=== PATIENT | male | born 1965 | race Caucasian/White ===

== ENCOUNTER 2016-04-17 00:14 | Emergency (ER) | payer MEDICARE ==
[2016-04-17 00:35] VITALS: TEMP 97.7; BMI 25.7
[2016-04-17] MEDS ORDERED: LORAZEPAM 2 MG/ML VIAL IV ONE ×2 (00:38→04:35)
--- NOTE | 2016-04-17 00:43 | EDPRACDOC ---
- General Information Mode of Arrival: Car - History of Present Illness Onset: TODAY HPI: PT PRESENTS WITH REPORT OF URINATING AND COUGHING UP BLOOD WELL MELENA. HE TOOK COCAINE AND POSSIBLY OTHER ILLICIT DRUGS EARLIER TODAY. HE IS AN IVDA. <Percy Rojas - Last Filed: 04/17/16 04:09> <Marcos Mccall - Last Filed: 04/17/16 13:09> - General Information Chief Complaint: HEMOPTYSIS Stated Complaint: EXCRETING BLOOD Time Seen by Provider: 04/17/16 00:35 Home Medications: Home Medications Dicyclomine HCl [Bentyl] 20 mg PO Q6H PRN #20 tab 04/17/16 Allergies/Adverse Reactions: Allergies Allergy/AdvReac Type Severity Reaction Status Date / Time sulfamethoxazole Allergy Unknown Unknown Verified 04/17/16 00:35 [From ] trimethoprim [From ] Allergy Unknown Unknown Verified 04/17/16 00:35 ED Past Medical History - History Reviewed Yes Nurses notes reviewed and agree except as marked - Patient Medical History Cardiac History: Reports: Hypertension Psychological History: Reports: Depression, Anxiety Additional Past Medical History: TRAUMATIC BRAIN INJURY Surgical History: Reports: Tonsillectomy/Adnoidectomy - Social Medical History Smoking Status: Heavy tobacco smoker (5 or more cigarettes/day or daily pipe/ cigar) Social History: Reports: Cocaine Use, Heroin Use Substance Abuse: Illicit Drugs Lives In: Home <Percy Rojas - Last Filed: 04/17/16 04:09> EDM Review of Systems - Review of Systems ROS Negative Except as Marked: Yes All systems reviewed and were negative except as marked Constitutional: Fatigue. negative: Fever Respiratory: Cough, Hemoptysis, Shortness of Breath Cardiovascular: Chest Pain Gastrointestinal: Melena, Pain Genitourinary: Hematuria <Percy Rojas - Last Filed: 04/17/16 04:09> - Physical Exam Constitutional: Alert Oriented to: Time, Person, Place Last recorded Vital Signs: Last Vital Signs Temp 97.7 F 04/17/16 00:27 Pulse 97 04/17/16 00:27 Resp 30 H 04/17/16 00:27 BP 120/59 L 04/17/16 00:27 Pulse Ox 98 04/17/16 00:27 Oxygen Pulse Oxygen Saturation 98 O2 Device Room Air Oxygen Flow Rate Fraction of Inspired Oxygen ( FIO2) - HEENT Head: negative: Deformity, Laceration Eye Exam: negative: Conjunctival Injection, Pale Conjunctiva Oropharynx: negative: Membranes Dry Nose: negative: Congestion, Discharge - Respiratory/Cardiovascular Respiratory: Tachypnea Cardiovascular: negative: Bradycardia - GI Auscultation: Normal Palpation: Normal Tenderness: Diffuse, Mild Rectal Exam: Heme negative stool - Musculoskeletal Extremities: Radial Pulse (PALPABLE) - Integumentary Skin: Warm, Dry, Other (MULTIPLE TRACK NICHOLAS) - Neurologic Memory Impaired: negative: Short-term Motor Function: Normal Mood Description: Anxious Thought: Coherent <Percy Rojas - Last Filed: 04/17/16 04:09> - Physical Exam Last recorded Vital Signs: Last Vital Signs Temp 97.7 F 04/17/16 00:27 Pulse 89 04/17/16 09:00 Resp 16 04/17/16 09:00 BP 121/71 04/17/16 09:00 Pulse Ox 96 04/17/16 09:00 Oxygen Pulse Oxygen Saturation 96 O2 Device Room Air Oxygen Flow Rate Fraction of Inspired Oxygen ( FIO2) <Marcos Mccall - Last Filed: 04/17/16 13:09> - Re-evaluation Re-evaluation 1 Re-evaluation Time: 03:04 PT NOW CALMER. HE HAS BEEN VOMITING FOR MANY DAYS NOW. SUSPECT DEHYDRATION CAUSE OF RENAL FAILURE. Re-evaluation 2 Re-evaluation Time: 03:25 CURRENTLY THERE IS NO GI COVERAGE. HOSPITALIST DECLINES ADMISSION PATIENT REPORTS GI BLEED FROM BOTH UPPER AND LOWER. PATIENT WAS RECENTLY TREATED AT [facility] FOR STAPH INFECTION TO HIS KNEE. AGREEABLE TO ATTEMPTED TRANSFER BACK TO [facility]. Re-evaluation 3 Re-evaluation Time: 04:09 PT ACCEPTED FOR TRANSFER TO [facility] BY DR. BRAR. - Results 04/17/16 00:43 04/17/16 00:43 - EKG EKG #1 EKG Time: 00:46 -: Yes EKG interpreted by me Rate: bpm: 95 Rhythm: NSR ST: Nonsp <Percy Rojas - Last Filed: 04/17/16 04:09> - Re-evaluation Re-evaluation 4 Re-evaluation Time: 13:08 NO DISTRESS. ABD SOFT. NONTENDER. DISCHARGING HOME. No changes in clinical status or new information from previous documentation. Vital Signs: Temp:97.7 F HR: 90 BP: 123/77 RR: 16 Pox: 96%. Continue with current plan. - Results 04/17/16 11:49 04/17/16 11:49 WBC 14.0 xk/uL (3.8-10.8) H 04/17/16 11:49 RBC 4.16 xM/uL (4.70-6.10) L 04/17/16 11:49 Hgb 11.8 g/dL (14.0-18.0) L 04/17/16 11:49 Hct 35.6 % (42-52) L 04/17/16 11:49 MCV 86 fL (80-94) 04/17/16 11:49 MCH 28.4 pg (27-32) 04/17/16 11:49 MCHC 33.2 g/dl (33-36) 04/17/16 11:49 RDW 13.8 % (11.5-14.5) 04/17/16 11:49 Plt Count 260 xk/uL (130-400) 04/17/16 11:49 MPV 7.2 fL (7.4-10.4) L 04/17/16 11:49 Neut % (Auto) 86.9 % (45-76) H 04/17/16 00:43 Lymph % (Auto) 6.2 % (17-44) L 04/17/16 00:43 [place] % (Auto) 6.3 % (3-10) 04/17/16 00:43 Eos % (Auto) 0.0 % (0-5) 04/17/16 00:43 Baso % (Auto) 0.6 % (0-2) 04/17/16 00:43 Absolute Neuts (auto) 18.06 xk/uL (1.7-8.2) H 04/17/16 00:43 Absolute Lymphs (auto) 1.26 xk/uL (0.65-4.75) 04/17/16 00:43 PT 11.3 SEC (9.2-11.2) H 04/17/16 00:43 INR 1.1 04/17/16 00:43 APTT 25.1 SEC (22-35) 04/17/16 00:43 Sodium 139 mEq/L (137-146) 04/17/16 11:49 Potassium 3.6 mEq/L (3.5-5.1) 04/17/16 11:49 Chloride 110 mEq/L (98-107) H 04/17/16 11:49 Carbon Dioxide 17 mMOL/L (22-33) L 04/17/16 11:49 Anion Gap 16 mEq/L (8-16) 04/17/16 11:49 BUN 28 MG/DL (9-20) H 04/17/16 11:49 Creatinine 1.40 MG/DL (0.66-1.25) H D 04/17/16 11:49 Estimated GFR (MDRD) 54 mL/min (>=60) L 04/17/16 11:49 Glucose 83 MG/DL (70-99) 04/17/16 11:49 Calculated Osmolality 273 MOs/Kg (270-290) 04/17/16 11:49 Lactic Acid 1.3 mEq/L (0.7-2.1) 04/17/16 02:45 Calcium 8.1 MG/DL (8.4-10.2) L 04/17/16 11:49 Total Bilirubin 0.8 MG/DL (0.2-1.3) 04/17/16 00:43 AST 48 IU/L (17-59) 04/17/16 00:43 ALT 34 IU/L (21-72) 04/17/16 00:43 Alkaline Phosphatase 144 IU/L (38-126) H 04/17/16 00:43 Creatine Kinase 655 IU/L (55-170) H 04/17/16 03:36 CK-MB (CK-2) 8.6 ng/mL (0-4.5) H 04/17/16 03:36 CK-MB (CK-2) Rel Index 1.3 (0.0-2.2) 04/17/16 03:36 Troponin I < 0.01 ng/mL (<.04) 04/17/16 06:05 Total Protein 9.1 G/DL (6.3-8.2) H 04/17/16 00:43 Albumin 4.7 G/DL (3.5-5.0) 04/17/16 00:43 Urine Color Yellow 04/17/16 01:53 Urine Clarity Cldy 04/17/16 01:53 Urine pH 5.0 (5.0-8.0) 04/17/16 01:53 Ur Specific Inez 1.035 (1.003-1.035) 04/17/16 01:53 Urine Protein Trace (NEG/TRACE) 04/17/16 01:53 Urine Glucose (UA) Neg (NEGATIVE) 04/17/16 01:53 Urine Ketones Neg (NEGATIVE) 04/17/16 01:53 Urine Occult Blood Neg (NEG/TRACE) 04/17/16 01:53 Urine Nitrite Neg (NEGATIVE) 04/17/16 01:53 Urine Bilirubin Neg (NEGATIVE) 04/17/16 01:53 Urine Urobilinogen 0.2 MG/DL (0-1) 04/17/16 01:53 Ur Leukocyte Esterase Trace (NEGATIVE) 04/17/16 01:53 Urine RBC 2-5 (0-2) H 04/17/16 01:53 Urine WBC 5-10 (0-2) H 04/17/16 01:53 Ur Epithelial Cells Occ 04/17/16 01:53 Urine Bacteria Few (NEG/FEW) 04/17/16 01:53 Hyaline Casts 10-20 (0-2) H 04/17/16 01:53 Urine Mucus Occ (NEG/OCC) 04/17/16 01:53 Urine Opiates Screen Neg (NEGATIVE) 04/17/16 01:53 Ur Oxycodone Screen *positive* (NEGATIVE) H 04/17/16 01:53 Urine Methadone Screen Neg (NEGATIVE) 04/17/16 01:53 Ur Barbiturates Screen Neg (NEGATIVE) 04/17/16 01:53 Ur Tricyclics Screen Neg (NEGATIVE) 04/17/16 01:53 Ur Phencyclidine Scrn Neg (NEGATIVE) 04/17/16 01:53 Ur Amphetamines Screen Neg (NEGATIVE) 04/17/16 01:53 U Methamphetamines Scrn Neg (NEGATIVE) 04/17/16 01:53 Urine MDMA Screen Neg (NEGATIVE) 04/17/16 01:53 U Benzodiazepines Scrn *positive* (NEGATIVE) H 04/17/16 01:53 Urine Cocaine Screen *positive* (NEGATIVE) H 04/17/16 01:53 Ur THC Screen Neg (NEGATIVE) 04/17/16 01:53 Plasma/Serum Ethyl Alc % (<0.01) 04/17/16 00:43 Lab Results 04/17/16 04/17/16 04/17/16 11:49 11:49 06:05 WBC 14.0 H RBC 4.16 L Hgb 11.8 L Hct 35.6 L MCV 86 MCH 28.4 MCHC 33.2 RDW 13.8 Plt Count 260 MPV 7.2 L Neut % (Auto) Lymph % (Auto) [place] % (Auto) Eos % (Auto) Baso % (Auto) Absolute Neuts (auto) Absolute Lymphs (auto) PT INR APTT Sodium 139 Potassium 3.6 Chloride 110 H Carbon Dioxide 17 L Anion Gap 16 BUN 28 H Creatinine 1.40 H D Estimated GFR (MDRD) 54 L Glucose 83 Calculated Osmolality 273 Lactic Acid Calcium 8.1 L Total Bilirubin AST ALT Alkaline Phosphatase Creatine Kinase CK-MB (CK-2) CK-MB (CK-2) Rel Index Troponin I < 0.01 Total Protein Albumin Urine Color Urine Clarity Urine pH Ur Specific Inez Urine Protein Urine Glucose (UA) Urine Ketones Urine Occult Blood Urine Nitrite Urine Bilirubin Urine Urobilinogen Ur Leukocyte Esterase Urine RBC Urine WBC Ur Epithelial Cells Urine Bacteria Hyaline Casts Urine Mucus Urine Opiates Screen Ur Oxycodone Screen Urine Methadone Screen Ur Barbiturates Screen Ur Tricyclics Screen Ur Phencyclidine Scrn Ur Amphetamines Screen U Methamphetamines Scrn Urine MDMA Screen U Benzodiazepines Scrn Urine Cocaine Screen Ur THC Screen Plasma/Serum Ethyl Alc 04/17/16 04/17/16 04/17/16 03:36 03:36 02:45 WBC RBC Hgb Hct MCV MCH MCHC RDW Plt Count MPV Neut % (Auto) Lymph % (Auto) [place] % (Auto) Eos % (Auto) Baso % (Auto) Absolute Neuts (auto) Absolute Lymphs (auto) PT INR APTT Sodium Potassium Chloride Carbon Dioxide Anion Gap BUN Creatinine Estimated GFR (MDRD) Glucose Calculated Osmolality Lactic Acid 1.3 Calcium Total Bilirubin AST ALT Alkaline Phosphatase Creatine Kinase Cancelled 655 H CK-MB (CK-2) 8.6 H CK-MB (CK-2) Rel Index 1.3 Troponin I < 0.01 Total Protein Albumin Urine Color Urine Clarity Urine pH Ur Specific Inez Urine Protein Urine Glucose (UA) Urine Ketones Urine Occult Blood Urine Nitrite Urine Bilirubin Urine Urobilinogen Ur Leukocyte Esterase Urine RBC Urine WBC Ur Epithelial Cells Urine Bacteria Hyaline Casts Urine Mucus Urine Opiates Screen Ur Oxycodone Screen Urine Methadone Screen Ur Barbiturates Screen Ur Tricyclics Screen Ur Phencyclidine Scrn Ur Amphetamines Screen U Methamphetamines Scrn Urine MDMA Screen U Benzodiazepines Scrn Urine Cocaine Screen Ur THC Screen Plasma/Serum Ethyl Alc 04/17/16 04/17/16 04/17/16 01:53 01:53 00:43 WBC RBC Hgb Hct MCV MCH MCHC RDW Plt Count MPV Neut % (Auto) Lymph % (Auto) [place] % (Auto) Eos % (Auto) Baso % (Auto) Absolute Neuts (auto) Absolute Lymphs (auto) PT INR APTT Sodium Potassium Chloride Carbon Dioxide Anion Gap BUN Creatinine Estimated GFR (MDRD) Glucose Calculated Osmolality Lactic Acid Calcium Total Bilirubin AST ALT Alkaline Phosphatase Creatine Kinase CK-MB (CK-2) CK-MB (CK-2) Rel Index Troponin I Total Protein Albumin Urine Color Yellow Urine Clarity Cldy Urine pH 5.0 Ur Specific Inez 1.035 Urine Protein Trace Urine Glucose (UA) Neg Urine Ketones Neg Urine Occult Blood Neg Urine Nitrite Neg Urine Bilirubin Neg Urine Urobilinogen 0.2 Ur Leukocyte Esterase Trace Urine RBC 2-5 H Urine WBC 5-10 H Ur Epithelial Cells Occ Urine Bacteria Few Hyaline Casts 10-20 H Urine Mucus Occ Urine Opiates Screen Neg Ur Oxycodone Screen *positive* H Urine Methadone Screen Neg Ur Barbiturates Screen Neg Ur Tricyclics Screen Neg Ur Phencyclidine Scrn Neg Ur Amphetamines Screen Neg U Methamphetamines Scrn Neg Urine MDMA Screen Neg U Benzodiazepines Scrn *positive* H Urine Cocaine Screen *positive* H Ur THC Screen Neg Plasma/Serum Ethyl Alc 04/17/16 04/17/16 04/17/16 00:43 00:43 00:43 WBC 21.0 H RBC 4.61 L Hgb 12.9 L Hct 39.0 L MCV 84 MCH 28.1 MCHC 33.2 RDW 13.5 Plt Count 301 MPV 7.9 Neut % (Auto) 86.9 H Lymph % (Auto) 6.2 L [place] % (Auto) 6.3 Eos % (Auto) 0.0 Baso % (Auto) 0.6 Absolute Neuts (auto) 18.06 H Absolute Lymphs (auto) 1.26 PT 11.3 H INR 1.1 APTT 25.1 Sodium 137 Potassium 3.7 Chloride 98 Carbon Dioxide 15 L Anion Gap 28 H BUN 37 H Creatinine 3.10 H Estimated GFR (MDRD) 22 L Glucose 145 H Calculated Osmolality 276 Lactic Acid Calcium 9.8 Total Bilirubin 0.8 AST 48 ALT 34 Alkaline Phosphatase 144 H Creatine Kinase CK-MB (CK-2) CK-MB (CK-2) Rel Index Troponin I < 0.01 Total Protein 9.1 H Albumin 4.7 Urine Color Urine Clarity Urine pH Ur Specific Inez Urine Protein Urine Glucose (UA) Urine Ketones Urine Occult Blood Urine Nitrite Urine Bilirubin Urine Urobilinogen Ur Leukocyte Esterase Urine RBC Urine WBC Ur Epithelial Cells Urine Bacteria Hyaline Casts Urine Mucus Urine Opiates Screen Ur Oxycodone Screen Urine Methadone Screen Ur Barbiturates Screen Ur Tricyclics Screen Ur Phencyclidine Scrn Ur Amphetamines Screen U Methamphetamines Scrn Urine MDMA Screen U Benzodiazepines Scrn Urine Cocaine Screen Ur THC Screen Plasma/Serum Ethyl Alc <Marcos Mccall - Last Filed: 04/17/16 13:09> - Departure Yes I personally saw and evaluated the patient. Disposition: Trans. to Other Hospital <Percy Rojas - Last Filed: 04/17/16 04:09> Decision Time to Discharge: 13:08 - Departure Yes I personally saw and evaluated the patient. Disposition: Home Education/Counseling Given To: Patient Education/Counseling Given Regarding: Diagnosis <Marcos Mccall - Last Filed: 04/17/16 13:09> - Departure Condition: Stable Final Diagnosis: Polysubstance abuse, Enteritis Anemia Qualifiers: Anemia type: unspecified type Qualified Code(s): D64.9 - Anemia, unspecified Acute renal failure Qualifiers: Acute renal failure type: unspecified Qualified Code(s): N17.9 - Acute kidney failure, unspecified GI bleed Qualifiers: GI bleed type/associated pathology: unspecified gastrointestinal hemorrhage type Qualified Code(s): K92.2 - Gastrointestinal hemorrhage, unspecified Abdominal pain Qualifiers: Abdominal location: generalized Qualified Code(s): R10.84 - Generalized abdominal pain Instructions: Renal Failure Diet (GEN), Non-pharmacological Pain Management Therapies for Adults (GEN), Abdominal Pain (ED) Referrals: Gerardo Hernández MD [Staff Physician] - One Week Shawn Arana MD [Staff Physician] - One Week Prescriptions: Dicyclomine HCl [Bentyl] 20 mg PO Q6H PRN #20 tab PRN Reason: Abdominal Pain
[2016-04-17] MEDS ORDERED: Pharmacy Review for Metformin - IV Contrast Given SCH ×2 (01:00)
[2016-04-17 01:01] LABS: AUTOMATED BASOPHIL 0.6 % (0-2); AUTOMATED LYMPH 6.2 % (17-44); AUTOMATED MONOCYTE 6.3 % (3-10); AUTOMATED NEUTROPHIL 86.9 % (45-76); MPV 7.9 fL (7.4-10.4)
[2016-04-17 01:10] LABS: ETOH-MGDL < 10 mg/dL
[2016-04-17 01:12] LABS: BLOOD UREA NITROGEN 37 MG/DL (9-20); CALCIUM 9.8 MG/DL (8.4-10.2); CALCULATED OSMOLALITY 276 MOs/Kg (270-290); CHLORIDE 98 mEq/L (98-107); GLUCOSE 145 MG/DL (70-99); PARTIAL THROMB. TIME 25.1 SEC (22-35); PT-INR 1.1; SODIUM LEVEL 137 mEq/L (137-146); TOTAL PROTEIN 9.1 G/DL (6.3-8.2)
[2016-04-17] MEDS ORDERED: MORPHINE 4 MG/ML INJECTION IV ONE (01:22)
[2016-04-17] MEDS ORDERED: NS 1,000 ML IV ONE ×5 (01:31→12:21)
[2016-04-17 01:58] LABS: ALL NEG? NO
[2016-04-17 02:09] LABS: MDMA* NEG (NEGATIVE); METHAMPHETAMINES NEG (NEGATIVE); OXYCODONE *POSITIVE* (NEGATIVE)
[2016-04-17 02:10] LABS: LEUKOCYTES/URINE TRACE (NEGATIVE); NITRITE/URINE NEG (NEGATIVE); URINE OCCULT BLOOD NEG (NEG/TRACE)
--- NOTE | 2016-04-17 02:31 | DIRPT ---
CLINICAL DATA: 50-year-old male with hemoptysis, Jackie, and hematuria. EXAM: CT CHEST, ABDOMEN AND PELVIS WITHOUT CONTRAST TECHNIQUE: Multidetector CT imaging of the chest, abdomen and pelvis was performed following the standard protocol without IV contrast. COMPARISON: Abdominal ultrasound dated 01/31/2015 FINDINGS: Evaluation of this exam is limited in the absence of intravenous contrast. CT CHEST The lungs are clear. No pleural effusion or pneumothorax. Find the central airways are patent. The thoracic aorta and central pulmonary arteries appear unremarkable. There is no cardiomegaly or pericardial effusion. No hilar or mediastinal adenopathy. The esophagus is grossly unremarkable. No thyroid nodule identified. There is no axillary adenopathy. The chest wall soft tissues appear unremarkable. Mild degenerative changes of the spine. No acute fracture. CT ABDOMEN AND PELVIS No intra-abdominal free air or free fluid. The liver, gallbladder, pancreas, spleen, adrenal glands, kidneys abdomen, visualized ureters appear unremarkable. The urinary bladder is predominantly distended. There is apparent diffuse thickening of the bladder wall which may be partly related to underdistention. Cystitis is not excluded. Correlation with urinalysis recommended. The prostate and seminal vesicles are grossly unremarkable. Evaluation of the bowel is limited in the absence of oral contrast. There is a thickened segment of small bowel loop in the lower abdomen compatible with enteritis. No evidence of bowel obstruction. Moderate stool throughout the colon. Normal appendix. Mild aortoiliac atherosclerotic disease. The abdominal aorta and IVC are grossly unremarkable on this noncontrast study. No portal venous gas identified. There is no adenopathy. Small fat containing bilateral inguinal hernia as well as a small fat containing umbilical hernia. There is degenerative changes of the spine. L4-S1 laminectomy and posterior fixation screws. No acute fracture. There are chronic degenerative changes adjacent to the T10-T11 disc space involving the inferior aspect of the T10 and superior aspect of the T11 compatible with Schmorl nodes. IMPRESSION: Segmental thickening of the loop of distal small bowel in the lower abdomen compatible with enteritis. No bowel obstruction. No other acute intrathoracic, abdominal, or pelvic pathology. Electronically Signed By: Gabe Mcrae M.D. On: 04/17/2016 02:28
[2016-04-17] MEDS ORDERED: ONDANSETRON HCL 4 MG/2 ML VIAL IV STA (03:47)
[2016-04-17 03:50] LABS: CPK TOTAL WITH POSSIBLE MB 655 IU/L (55-170)
[2016-04-17 04:06] LABS: CPKMB 8.6 ng/mL (0-4.5); CPKMB RELATIVE INDEX 1.3 (0.0-2.2)
[2016-04-17] MEDS ORDERED: PANTOPRAZOLE 40 MG VIAL IV STA (04:06)
[2016-04-17] MEDS ORDERED: PROMETHAZINE 25 MG/ML VIAL IV STA (04:39)
[2016-04-17 11:56] LABS: MPV 7.2 fL (7.4-10.4)
[2016-04-17 12:09] LABS: BLOOD UREA NITROGEN 28 MG/DL (9-20); CALCIUM 8.1 MG/DL (8.4-10.2); CALCULATED OSMOLALITY 273 MOs/Kg (270-290); CHLORIDE 110 mEq/L (98-107); GLUCOSE 83 MG/DL (70-99); SODIUM LEVEL 139 mEq/L (137-146)
[2016-04-17 12:34] VITALS: BP 123/77; PULSE 90
== END 2016-04-17 14:25 | disposition home or self-care (01) ==
LOC: ED 00:14
DX: K52.9 Noninfective gastroenteritis and colitis, unspecified (principal); F19.10 Other psychoactive substance abuse, uncomplicated; D64.9 Anemia, unspecified; N17.9 Acute kidney failure, unspecified; K92.2 Gastrointestinal hemorrhage, unspecified; R10.84 Generalized abdominal pain
CPT/HCPCS: 36415; 71250; 74176; 80048; 80053; 80307; 81001; 82550; 82553; 83605; 84484; 85025; 85027; 85610; 85730; 87040; 93005; 96361; 96374; 96375; 96376; 99284; J2060; J2270; J2405; J2550; J3490; S0164